=== PATIENT | male | born 1990 | race Caucasian/White ===

== ENCOUNTER 2017-02-22 19:33 | Emergency (ER) | payer OTHER ==
--- NOTE | 2017-02-22 20:57 | EDM.PDOC ---
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, adjusting a eyal stands/stabilizer further rig and the eyal drop-down landing on the distal tip of his thumb, right thumb affected is swollen at the distal tip slight abrasion the nail is intact there is slight subungual hematoma otherwise neurovascularly intact no open lesion, patient denies further injury no head injury, limb is unaffected above the wrist, essentially unaffected above the distal phalanx of the right thumb No fever nausea vomiting chills sweats no chest pain shortness breath headache dizziness palpitation about a urine symptoms 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 Review of systems: As per history of present illness and below otherwise all systems reviewed and negative. Past medical history: As per history of present illness and as reviewed below otherwise noncontributory. Surgical history: As per history of present illness and as reviewed below otherwise noncontributory. Social history: No reported history of drug or alcohol abuse. Family history: As per history of present illness and as reviewed below otherwise noncontributory. Physical exam: HEENT: Atraumatic, normocephalic, pupils reactive, negative for conjunctival pallor or scleral icterus, mucous membranes moist, throat clear, neck supple, nontender, trachea midline. Lungs: Clear to auscultation, breath sounds equal bilaterally, chest nontender. Heart: S1S2, regular, negative for clicks, rubs, or JVD. Abdomen: Soft, nondistended, nontender. Negative for masses or hepatosplenomegaly. Negative for costovertebral tenderness. Pelvis: Stable nontender. Genitourinary: Deferred. Rectal: Deferred. Extremities: Atraumatic, negative for cords or calf pain. Neurovascular unremarkable. Neuro: Awake, alert, oriented. Cranial nerves II through XII unremarkable. Cerebellum unremarkable. Motor and sensory unremarkable throughout. Exam nonfocal. Diagnostics: []Right thumb 3 views performed on PA view there does appear to be a simple fracture involving the distal tuft did not appreciate this on oblique will follow radiology, clinically this is where the patient is most tender on the thumb Therapeutics: []Splint Rest ice ibuprofen Follow-up with Renata Underwood in 2 weeks or occupational health Impression: []Distal tuft fracture right thumb simple fracture, closed clinically Definitive disposition and diagnosis as appropriate pending reevaluation and review of above. - Related Data Allergies Allergy/AdvReac Type Severity Reaction Status Date / Time No Known Allergies Allergy Verified 02/22/17 20:16 Home Meds: Home Meds . [No Known Home Meds] 02/22/17 [History] Past Medical History - Past Health History Medical/Surgical History: Denies Medical/Surgical History Cardiovascular History: Reports: None Respiratory History: Reports: None Gastrointestinal History: Reports: None Genitourinary History: Reports: None Musculoskeletal History: Reports: None Neurological History: Reports: None Psychiatric History: Reports: None Endocrine/Metabolic History: Reports: None Dermatologic History: Reports: None - Infectious Disease History Infectious Disease History: Reports: None - Past Surgical History Male Surgical History: Reports: None Social & Family History - Family History Family Medical History: Noncontributory - Tobacco Use Smoking Status *Q: Never Smoker - Recreational Drug Use Recreational Drug Use: No Review of Systems - Review of Systems Review Of Systems: ROS reveals no pertinent complaints other than HPI. ED EXAM, GENERAL - Physical Exam Exam: See Below Course - Vital Signs Last Recorded V/S: Last Vital Signs Temp 36.9 C 02/22/17 20:17 Pulse 85 02/22/17 20:17 Resp 16 02/22/17 20:17 BP 138/65 02/22/17 20:17 Pulse Ox 99 02/22/17 20:17 - Orders/Labs/Meds Orders: Active Orders 24 hr Category Date Time Status Fingers Thumb Rt F5 [CR] Stat Exams 02/22/17 20:24 Taken Departure - Departure Time of Disposition: 21:16 Disposition: Home, Self-Care 01 Condition: Good Clinical Impression: Fracture, Thumb fracture, Contusion - Discharge Information Referrals: PCP,None [Primary Care Provider] - Forms: ED Department Discharge Additional Instructions: Again it appears there is a subtle fracture on the distal tuft of the lateral right thumb on the PA view of your x-rays we will follow radiology for their opinion Splint for protection Ibuprofen 400 mg 3 times daily 7-10 days Ice 20 minute intervals 3 times daily as needed For now light left hand duty only, follow-up with Dr. Nabila Dominguez who is our hand specialist in 2 weeks, you may follow with occupational health sooner as needed for work release or further restriction is required. Call number below for follow-up appointment with Nabila Dominguez hand specialist. [facility] [address] [place] [address], [address] [place] [address] Employer may be associated with occupational health clinic it would be appropriate to follow-up with their clinic in the interim as needed for further work clearance or restriction as needed The following information is given to patients seen in the emergency department who are being discharged to home. This information is to outline your options for follow-up care. We provide all patients seen in our emergency department with a follow-up referral. The need for follow-up, as well as the timing and circumstances, are variable depending upon the specifics of your emergency department visit. If you don't have a primary care physician on staff, we will provide you with a referral. We always advise you to contact your personal physician following an emergency department visit to inform them of the circumstance of the visit and for follow-up with them and/or the need for any referrals to a consulting specialist. The emergency department will also refer you to a specialist when appropriate. This referral assures that you have the opportunity for follow-up care with a specialist. All of these measure are taken in an effort to provide you with optimal care, which includes your follow-up. Under all circumstances we always encourage you to contact your private physician who remains a resource for coordinating your care. When calling for follow-up care, please make the office aware that this follow-up is from your recent emergency room visit. If for any reason you are refused follow-up, please contact the [facility] emergency department at and asked to speak to the emergency department charge nurse. - My Orders Last 24 Hours: My Active Orders 02/22/17 20:24 Fingers Thumb Rt F5 [CR] Stat - Assessment/Plan Last 24 Hours: My Active Orders 02/22/17 20:24 Fingers Thumb Rt F5 [CR] Stat
[2017-02-22 22:41] VITALS: BP 139/70
--- NOTE | 2017-02-23 10:18 | CR ---
EXAM DATE: 02/22/17 PATIENT'S AGE: 26 Patient: NICO MOORE Facility: [place], [place] Site . Site : 1990 Study: XRay Extremity thumb [id number]/[id number] 8:37:17 PM Ordering Physician: Doctor Salmon Final Report: INDICATION: Crushing injury to right thumb. COMPARISON: None. FINDINGS/IMPRESSION: Right thumb, 3 views. Nondisplaced fracture of the tuft of the distal phalanx of the right thumb. Diffuse thumb soft tissue swelling. No dislocation or other significant abnormality identified. Dictated by Kaushal Clarke MD @ 02/22/2017 9:40:03 PM Dictated by: Kaushal Clarke MD @ 02/22/2017 21:40:23 (Electronic Signature) Report Signed by Proxy. CHRIS
== END 2017-02-22 21:37 | disposition home or self-care (01) ==
LOC: MW.ED 19:33
DX: S62.524A Nondisplaced fracture of distal phalanx of right thumb, initial encounter for closed fracture (principal); W20.8XXA Other cause of strike by thrown, projected or falling object, initial encounter; Y92.65 Oil rig as the place of occurrence of the external cause; Y99.0 Civilian activity done for income or pay
CPT/HCPCS: 29125; 73140-26-F5; 73140-F5; 99282; 99283